=== PATIENT | male | born 1965 | race African-American/Black ===

== ENCOUNTER 2024-08-28 13:49 | Inpatient (IN) | payer OTHER ==
[~2024-08-28] VITALS: Ht 177.8 cm; Wt 81.6 kg
[2024-08-28 14:42] LABS: BASOPHILS # (AUTO) 0.1 K/UL (0.0-0.2); BASOPHILS % (AUTO) 0.5 % (0.0-2.0); DIFFERENTIAL COMMENT 0; EOSINOPHILS # (AUTO) 0.1 K/uL (0.0-0.7); EOSINOPHILS % (AUTO) 0.4 % (0.0-7.0); HEMATOCRIT 39.9 % (36.7-47.1); HEMOGLOBIN 12.9 g/dL (12.5-16.3); LYMPHOCYTES # (AUTO) 22.4 K/uL (0.8-4.8); LYMPHOCYTES % (AUTO) 82.7 % (20.5-51.5); MEAN CORPUSCULAR HGB CONC 32 g/dL (32.5-36.3); MONOCYTES # (AUTO) 0.8 K/uL (0.1-1.30); NEUTROPHILS # (AUTO) 3.6 K/uL (1.8-8.9); NEUTROPHILS % (AUTO) 13.4 % (38.5-71.5); PLATELET COUNT (AUTO) 178 K/uL (152-348); RED BLOOD CELL COUNT(AUTO) 4.29 MIL/uL (4.06-5.63); RED CELL DISTRIBUTION WIDTH 13.5 % (12.1-16.2); WHITE BLOOD COUNT (AUTO) 27.1 K/uL (3.6-10.2)
[2024-08-28] MEDS ORDERED: RISP1TAB97 PO (14:48)
[2024-08-28] MEDS ORDERED: MONT10TA33 PO (14:48)
[2024-08-28] MEDS ORDERED: LATA2.5D15 EACHEYE (14:48)
[2024-08-28] MEDS ORDERED: LEVE750T10 PO (14:48)
[2024-08-28] MEDS ORDERED: BENZ2TAB7 PO (14:48)
[2024-08-28] MEDS ORDERED: ALBU8HFA4 IH (14:48)
[2024-08-28] MEDS ORDERED: PALI117D IM ×2 (14:48→21:25)
[2024-08-28] MEDS ORDERED: FLUO40CA49 PO (14:48)
[2024-08-28 14:52] LABS: CALCIUM 8.8 mg/dL (8.5-10.1); CARBON DIOXIDE 25 mmol/L (21-32); CHLORIDE 106 mmol/L (98-107); CREATININE 1.2 mg/dL (0.6-1.3); GLUCOSE 92 mg/dL (74-106); POTASSIUM 3.8 mmol/L (3.5-5.1); SODIUM SERUM 139 mmol/L (136-145); UREA NITROGEN, BLOOD 17 mg/dL (7-18)
[2024-08-28 14:56] LABS: ETHANOL < 3 MG/DL (0-10)
[2024-08-28 14:57] LABS: ALANINE AMINOTRANSFERASE 14 U/L (16-63); ALBUMIN 3.6 g/dL (3.4-5.0); ALKALINE PHOSPHATASE 82 U/L (50-136); ASPARTATE AMINOTRANSFERASE 7 U/L (15-37); BILIRUBIN,DIRECT 0.2 mg/dL (0.0-0.2); BILIRUBIN,TOTAL 0.7 mg/dL (0.2-1.0); TOTAL PROTEIN, SERUM 6.1 g/dL (6.4-8.2)
[2024-08-28 15:05] LABS: AMMONIA 20 umol/L (11-32)
[2024-08-28 15:22] LABS: ACETAMINOPHEN < 2.0 ug/mL (10-30)
[2024-08-28 17:35] LABS: *BILIRUBIN,URIN NEGATIVE (NEGATIVE); *BLOOD, URINE 1+ (NEGATIVE); *CLARITY,URINE CLEAR (CLEAR); *COLOR,URINE YELLOW (YELLOW); *KETONES,URINE NEGATIVE (NEGATIVE); *PROTEIN,URINE NEGATIVE (NEGATIVE); *UROBILINOGEN,URINE 0.2 E.U./dl (NORMAL); LEUKOCYTE ESTERASE ,URINE NEGATIVE (NEGATIVE); NITRITE, URINE NEGATIVE (NEGATIVE); PH,URINE 5.5 (5.0-8.0); UGLUCOSE NEGATIVE (NEGATIVE)
[2024-08-28 17:43] LABS: *AMPHETAMINE, URINE NEGATIVE (NEGATIVE); *BARBITURATE, URINE NEGATIVE (NEGATIVE); *BENZODIAZEPINE, URINE NEGATIVE (NEGATIVE); *CANNABINOID, URINE NEGATIVE (NEGATIVE); *COCCAINE, URINE NEGATIVE (NEGATIVE); *OPIATE, URINE NEGATIVE (NEGATIVE); *PHENCYCLIDINE SCREEN,URINE NEGATIVE (NEGATIVE); FENTANYL, URINE NEGATIVE (NEGATIVE)
[2024-08-28 17:52] LABS: BACTERIA,URINE NONE SEEN /HPF (NONE SEEN); RBC,URINE 0-3 /HPF (0-3); WBC,URINE 0-3 /HPF (0-3)
[2024-08-28 17:53] LABS: SQUAMOUS EPITHELIAL CELL,UR NONE SEEN /HPF (NONE SEEN)
[2024-08-28] MEDS ORDERED: ONDANSETRON 4 MG/2 ML VIAL IV PRN (19:00)
[2024-08-28] MEDS ORDERED: ALBUTEROL SULFATE 8 GM HFA.AER.AD INH PRN (19:00)
[2024-08-28] MEDS ORDERED: REMEDY ESSENTIAL ZINC PASTE 113 GM TP PRN (19:00)
[2024-08-28] MEDS: DOXYCYCLINE HYCLATE 100 MG TABLET PO ONE (19:00)
[2024-08-28] MEDS ORDERED: MAGNESIUM HYDROXIDE 30 ML LIQUID UDC PO PRN (19:00)
[2024-08-28] MEDS ORDERED: ACETAMINOPHEN 325 MG TABLET PO PRN (19:00)
[2024-08-28] MEDS ORDERED: ALBUTEROL SULFATE 2.5 MG/3 ML NEBU NEB PRN (19:30)
[2024-08-28] MEDS ORDERED: DOXYCYCLINE HYCLATE 100 MG TABLET ONE (19:58)
[2024-08-28] MEDS ORDERED: TAMS-3 PO (21:11)
[2024-08-28] MEDS ORDERED: LACT10SO58 PO (21:11)
[2024-08-28] MEDS ORDERED: BENZ-38 PO (21:11)
[2024-08-28] MEDS ORDERED: LEVA1.2543 IH (21:11)
[2024-08-28] MEDS ORDERED: MOME13HF INH (21:11)
[2024-08-28] MEDS ORDERED: CEFTRIAXONE /D5W 50ML IVPB **ER PYXIS IV ONE (21:15)
[2024-08-28] MEDS ORDERED: PANTOPRAZOLE SODIUM 40 MG TABLET.DR PO ONE (21:16)
[2024-08-28] MEDS ORDERED: levETIRAcetam 250 MG TABLET ONE (21:16)
[2024-08-28] MEDS: CEFTRIAXONE 1 G in IV DEXTROSE 5% 50 ML IV SCH (21:34)
[2024-08-28] MEDS: levETIRAcetam 250 MG TABLET PO SCH (21:34)
[2024-08-28 22:25] VITALS: BP 108/74; TEMP 98.8; O2SAT 95
[2024-08-28] MEDS: LATANOPROST OPHT DROP 2.5 ML BOTTLE EACHEYE SCH (22:30)
[2024-08-28] MEDS: IV NS 1000 ML 1,000 ML IV PRN (22:47)
[2024-08-29 04:41] VITALS: BP 17/80; TEMP 97.3; O2SAT 96
[2024-08-29] MEDS: PANTOPRAZOLE SODIUM 40 MG TABLET.DR PO SCH (06:40)
[2024-08-29 06:58] LABS: BASOPHILS # (AUTO) 0.1 K/UL (0.0-0.2); BASOPHILS % (AUTO) 0.2 % (0.0-2.0); DIFFERENTIAL COMMENT 0; EOSINOPHILS # (AUTO) 0.3 K/uL (0.0-0.7); HEMOGLOBIN 12.9 g/dL (12.5-16.3); LYMPHOCYTES # (AUTO) 29.1 K/uL (0.8-4.8); LYMPHOCYTES % (AUTO) 83.1 % (20.5-51.5); MEAN CORPUSCULAR HEMOGLOBIN 30.3 uug (23.8-33.4); MEAN CORPUSCULAR HGB CONC 32 g/dL (32.5-36.3); MEAN CORPUSCULAR VOLUME 93.9 fL (73.0-96.2); MONOCYTES # (AUTO) 1.2 K/uL (0.1-1.30); MONOCYTES % (AUTO) 3.4 % (0.0-11.0); NEUTROPHILS # (AUTO) 4.3 K/uL (1.8-8.9); NEUTROPHILS % (AUTO) 12.3 % (38.5-71.5); PLATELET COUNT (AUTO) 186 K/uL (152-348); RED BLOOD CELL COUNT(AUTO) 4.26 MIL/uL (4.06-5.63); RED CELL DISTRIBUTION WIDTH 13.6 % (12.1-16.2)
[2024-08-29 06:59] LABS: ALBUMIN 3.5 g/dL (3.4-5.0); BILIRUBIN,TOTAL 0.9 mg/dL (0.2-1.0); CALCIUM 8.8 mg/dL (8.5-10.1); CREATININE 1.1 mg/dL (0.6-1.3); PHOSPHOROUS 3.3 mg/dL (2.5-4.9); POTASSIUM 4.3 mmol/L (3.5-5.1); TOTAL PROTEIN, SERUM 6.5 g/dL (6.4-8.2)
[2024-08-29 07:11] LABS: WHITE BLOOD COUNT (AUTO) 35.1 K/uL (3.6-10.2)
[2024-08-29 07:12] LABS: THYROID STIMULATING HORMONE 2.013 mIU/mL (0.358-3.740)
[2024-08-29 07:47] VITALS: BP 114/73; TEMP 98.3; O2SAT 98
[2024-08-29 10:13] LABS: LYMPHOCYTES % (MANUAL) 82 % (20-40); MONOCYTES % (MANUAL) 1 % (2-10); NEUTROPHILS % (MANUAL) 10 % (42-75)
[2024-08-29 10:14] LABS: PLATELET ESTIMATE ADEQUATE
[2024-08-29] MEDS: MONTELUKAST SODIUM 10 MG TABLET PO SCH (10:31)
[2024-08-29] MEDS: BENZTROPINE MESYLATE 0.5 MG TABLET PO SCH (10:31)
[2024-08-29] MEDS: FLUOXETINE HCL 20 MG CAPSULE PO SCH (10:31)
[2024-08-29] MEDS: ENOXAPARIN SODIUM 40 MG/0.4 ML DISP.SYRIN SQ SCH (10:33)
[2024-08-29 11:57] VITALS: BP 111/75; TEMP 98.4; O2SAT 98
[2024-08-29] MEDS ORDERED: LORA-972 PO (14:31)
[2024-08-29] MEDS ORDERED: PALI6TAB6 PO (14:35)
[2024-08-29] MEDS ORDERED: FLUT15.812 (14:36)
[2024-08-29 16:20] VITALS: BP 121/76; TEMP 97.4; O2SAT 98
[2024-08-29] MEDS: risperiDONE 1 MG TABLET PO SCH (17:36)
[2024-08-29 19:19] VITALS: BP 114/70; TEMP 97.9; O2SAT 96
[2024-08-29 23:30] VITALS: BP 96/64; TEMP 97.9; O2SAT 97
[2024-08-30 05:44] VITALS: BP 110/69; TEMP 97.5; O2SAT 99
[2024-08-30 06:47] LABS: RED CELL DISTRIBUTION WIDTH 13.5 % (12.1-16.2)
[2024-08-30 06:51] LABS: BASOPHILS # (AUTO) 0.1 K/UL (0.0-0.2); BASOPHILS % (AUTO) 0.2 % (0.0-2.0); EOSINOPHILS # (AUTO) 0.4 K/uL (0.0-0.7); EOSINOPHILS % (AUTO) 1.2 % (0.0-7.0); HEMATOCRIT 37.8 % (36.7-47.1); HEMOGLOBIN 12.4 g/dL (12.5-16.3); LYMPHOCYTES # (AUTO) 29.3 K/uL (0.8-4.8); LYMPHOCYTES % (AUTO) 86.1 % (20.5-51.5); MEAN CORPUSCULAR HEMOGLOBIN 30.2 uug (23.8-33.4); MEAN CORPUSCULAR HGB CONC 33 g/dL (32.5-36.3); MEAN CORPUSCULAR VOLUME 91.7 fL (73.0-96.2); MONOCYTES # (AUTO) 0.9 K/uL (0.1-1.30); MONOCYTES % (AUTO) 2.7 % (0.0-11.0); NEUTROPHILS # (AUTO) 3.3 K/uL (1.8-8.9); NEUTROPHILS % (AUTO) 9.8 % (38.5-71.5); PLATELET COUNT (AUTO) 172 K/uL (152-348); RED BLOOD CELL COUNT(AUTO) 4.12 MIL/uL (4.06-5.63)
[2024-08-30 07:04] LABS: CALCIUM 8.8 mg/dL (8.5-10.1); CREATININE 1.3 mg/dL (0.6-1.3); DIFFERENTIAL COMMENT 1; POTASSIUM 4.9 mmol/L (3.5-5.1); WHITE BLOOD COUNT (AUTO) 34.1 K/uL (3.6-10.2)
[2024-08-30 07:53] VITALS: BP 132/82; TEMP 97.9; O2SAT 100
[2024-08-30] MEDS ORDERED: IV NORMAL SALINE 250 ML IV ONE (11:34)
[2024-08-30] MEDS ORDERED: SWABABLE VALVE TRANSFER SET EA MC ONE (11:34)
[2024-08-30] MEDS ORDERED: IOHEXOL 300MG/ML 100 ML INFUS..BTL ONE (11:34)
[2024-08-30 12:00] VITALS: BP 127/77; TEMP 98.2; O2SAT 96
[2024-08-30 12:08] LABS: THYROID STIMULATING HORMONE 2.341 mIU/mL (0.358-3.740)
[2024-08-30 16:37] VITALS: BP 118/76; TEMP 98.5; O2SAT 98
[2024-08-30 19:25] VITALS: BP 111/77; TEMP 98.3; O2SAT 96
[2024-08-30 19:45] VITALS: BP 109/89; TEMP 98.4; O2SAT 97
[2024-08-31 00:33] VITALS: BP 115/79; TEMP 98; O2SAT 100
[2024-08-31 04:43] VITALS: BP 114/75; TEMP 98; O2SAT 100
[2024-08-31 07:13] LABS: BASOPHILS # (AUTO) 0.1 K/UL (0.0-0.2); BASOPHILS % (AUTO) 0.2 % (0.0-2.0); EOSINOPHILS # (AUTO) 0.3 K/uL (0.0-0.7); EOSINOPHILS % (AUTO) 0.9 % (0.0-7.0); HEMATOCRIT 39.9 % (36.7-47.1); LYMPHOCYTES # (AUTO) 29.3 K/uL (0.8-4.8); LYMPHOCYTES % (AUTO) 85.7 % (20.5-51.5); MEAN CORPUSCULAR HEMOGLOBIN 30.8 uug (23.8-33.4); MEAN CORPUSCULAR HGB CONC 33 g/dL (32.5-36.3); MEAN CORPUSCULAR VOLUME 94.3 fL (73.0-96.2); MONOCYTES % (AUTO) 3.1 % (0.0-11.0); NEUTROPHILS # (AUTO) 3.4 K/uL (1.8-8.9); NEUTROPHILS % (AUTO) 10.1 % (38.5-71.5); PLATELET COUNT (AUTO) 179 K/uL (152-348); RED BLOOD CELL COUNT(AUTO) 4.23 MIL/uL (4.06-5.63)
[2024-08-31 07:26] LABS: DIFFERENTIAL COMMENT 1; WHITE BLOOD COUNT (AUTO) 34.1 K/uL (3.6-10.2)
[2024-08-31 07:31] LABS: CALCIUM 8.9 mg/dL (8.5-10.1); CREATININE 1.4 mg/dL (0.6-1.3); POTASSIUM 4.2 mmol/L (3.5-5.1)
[2024-08-31 07:51] VITALS: BP 107/74; TEMP 97.4; O2SAT 100
[2024-08-31 08:09] LABS: *IMMUNOGLOBULIN G, SERUM 662 mg/dL (603-1613); FOLATE (FOLIC ACID), SERUM 11.2 ng/mL (>3.0); HAPTOGLOBIN 147 mg/dL (29-370); IMMUNOGLOBULIN A, SERUM 48 mg/dL (90-386); IMMUNOGLOBULIN M, SERUM 22 mg/dL (20-172)
[2024-08-31 09:31] LABS: *OCCULT BLOOD STOOL NEGATIVE (NEGATIVE)
[2024-08-31 12:00] VITALS: BP 123/76; TEMP 98.4; O2SAT 100
[2024-08-31 13:31] LABS: LYMPHOCYTES % (MANUAL) 65 % (20-40); NEUTROPHILS % (MANUAL) 9 % (42-75)
[2024-08-31 13:32] LABS: MONOCYTES % (MANUAL) 4 % (2-10); PLATELET ESTIMATE ADEQUATE
[2024-08-31 15:50] VITALS: BP 102/71; TEMP 97.8; O2SAT 99
== END 2024-08-31 16:00 | disposition home or self-care (01) | DRG 53 ==
LOC: ER 13:49 → TELE3 21:53
PROVIDERS: ADMIT Nurse Practitioner Acute Care; ATTEND Nurse Practitioner Acute Care
DX: G40.909 Epilepsy, unspecified, not intractable, without status epilepticus (principal); E72.20 Disorder of urea cycle metabolism, unspecified; C91.10 Chronic lymphocytic leukemia of B-cell type not having achieved remission; F20.0 Paranoid schizophrenia; R41.82 Altered mental status, unspecified; D64.9 Anemia, unspecified; R79.89 Other specified abnormal findings of blood chemistry; M50.321 Other cervical disc degeneration at C4-C5 level; N40.0 Benign prostatic hyperplasia without lower urinary tract symptoms; Z79.899 Other long term (current) drug therapy; Z85.72 Personal history of non-Hodgkin lymphomas; Z79.51 Long term (current) use of inhaled steroids; J98.9 Respiratory disorder, unspecified
CPT/HCPCS: 36415; 70450; 71045; 71260; 72125; 82746; 82784; 83010; 83605; 83615; 83735; 84100; 84155; 84165; 84443; 84484; 85025; 85730; 86334; 86880; 87040; 87086; A4606; A4663; G0378; G0480; J0696; J1650; J7040; Q9967